=== PATIENT | female | born 1990 | race Two or more races ===

== ENCOUNTER 2022-01-17 14:57 | Emergency (ER) | payer MEDICAID ==
[~2022-01-17] VITALS: Ht 157.5 cm; Wt 85.7 kg
[2022-01-17 14:59] VITALS: BP 135/86
[2022-01-17] MEDS ORDERED: PRED20TA2 PO (15:56)
[2022-01-17] MEDS ORDERED: IBUP800T27 PO (15:56)
== END 2022-01-17 16:28 | disposition home or self-care (01) ==
LOC: ER 14:57
DX: G56.01 Carpal tunnel syndrome, right upper limb (principal)
CPT/HCPCS: 29125